=== PATIENT | female | born 1960 | race Caucasian/White ===

== ENCOUNTER → 2017-12-12 08:59 | Outpatient (CLI) | payer OTHER, SELFPAY ==
[2017-12-12 10:57] LABS: ALB/GLOB Ratio 1.2 RATIO (0.9-2.4); AST(SGOT) 15 U/L (15-37); Alanine Aminotransfer ALT/SGPT 25 U/L (13-56); Albumin, Serum 3.7 g/dL (3.2-5.0); Alkaline Phosphatase 90 U/L (45-117); Anion Gap 5 (5-15); BUN 14 mg/dL (7-18); BUN/Creat Ratio 19.9 RATIO (10-20); Calcium,Total 8.5 mg/dL (8.5-10.1); Chloride 107 mmol/L (98-107); EST Glomerular Filtration Rate 91 mL/min (>60); Est Glom Filt Rate - Afr Amer 110 mL/min (>60); Globulin 3.2 g/dL (2.2-4.2); Glucose 86 mg/dL (74-106); Protein, Total 6.9 g/dL (6.4-8.2); Sodium Level 140 mmol/L (136-145)
== END ==
PROVIDERS: Visit Provider Family Medicine
DX: I10 Essential (primary) hypertension (principal)
CPT/HCPCS: 36415; 80053

== ENCOUNTER → 2017-12-24 08:41 | Outpatient (CLI) | payer OTHER, SELFPAY ==
--- NOTE | 2017-12-24 08:53 | BI_ITS ---
MAMMOGRAPHY - BILATERAL SCREENING REASON FOR EXAM: Female, 57 years old. Routine annual screening examination. PERTINENT HISTORY: Non-contributory. TECHNIQUE: Digital bilateral breast teodora (3D mammographic acquisition) in the CC and MLO projections. 2-D mediolateral oblique (MLO) and craniocaudad (CC) views of both breasts were obtained. CAD: Full Field Digital Mammography with Computer Added Detection was performed. COMPARISON: Comparison is made with prior study dated September 12, 2015. FINDINGS: Breast Composition: There are scattered areas of fibroglandular density. There are no dominant masses or suspicious calcifications. No other significant abnormalities are identified. There has been no significant change since the prior study. BI/SCREENING MAMM (CAD), BILAT IMPRESSION: Stable bilateral screening mammogram. Yearly follow-up mammogram recommended. (A) ASSESSMENT CATEGORY: BIRADS Category 1: Negative. A letter regarding these results will be sent to the patient by the facility within 30 days. Approximately 10% of breast cancers are not detected by mammography. A normal mammogram should not delay biopsy of a clinically suspicious abnormality. [id number] Electronically Signed: Lorenzo Guerra MD at 8:55 EDT Tel [phone], Service support ,
== END ==
PROVIDERS: Family Provider Family Medicine; PCP Family Medicine; Visit Provider Family Medicine
DX: Z12.31 Encounter for screening mammogram for malignant neoplasm of breast (principal)
CPT/HCPCS: 77063; 77067

== ENCOUNTER → 2018-07-28 08:12 | Outpatient (CLI) | payer OTHER, SELFPAY ==
[2018-07-28 10:42] LABS: BUN 18 mg/dL (7-18); Creatinine, Serum 0.52 mg/dL (0.55-1.02); Glucose 77 mg/dL (74-106)
[2018-07-28 10:43] LABS: ALB/GLOB Ratio 1.2 RATIO (0.9-2.4); AST(SGOT) 17 U/L (15-37); Alanine Aminotransfer ALT/SGPT 24 U/L (13-56); Albumin, Serum 3.6 g/dL (3.2-5.0); Alkaline Phosphatase 85 U/L (45-117); Anion Gap 9 (5-15); BUN/Creat Ratio 34.5 RATIO (10-20); Calcium,Total 8.4 mg/dL (8.5-10.1); Chloride 106 mmol/L (98-107); Cholesterol 233 mg/dL (200); EST Glomerular Filtration Rate 129 mL/min (>60); Est Glom Filt Rate - Afr Amer 156 mL/min (>60); Globulin 3.1 g/dL (2.2-4.2); High Density Lipoprotein 51 mg/dL; Protein, Total 6.7 g/dL (6.4-8.2); Sodium Level 140 mmol/L (136-145); Triglycerides 250 mg/dL; Very Low Density Lipoprotein 50 mg/dL (5-40)
== END ==
LOC: MFPLAB 08:13
PROVIDERS: Family Provider Family Medicine; PCP Family Medicine; Visit Provider Nurse Practitioner Family
DX: I10 Essential (primary) hypertension (principal); E78.5 Hyperlipidemia, unspecified
CPT/HCPCS: 36415; 80053; 80061

== ENCOUNTER 2018-08-21 16:30 | Outpatient (RCR) | payer OTHER, SELFPAY ==
--- NOTE | 2018-06-22 11:39 | HP.PTEVAL ---
Patient's Visit Information MARIANELA CRANDALL is a 57 year old F referred to Physical Therapy by SHAWN LIU with a diagnosis of LEFT SHOULDER OA, IMPINGEMENT & ADHESIVE CAPSULITIS. S/P L SHLD SX 06/12/18. Date of Evaluation: 06/22/18 Physical Therapist: Vilma Barrientos, PT, Cert MDT - Visit Plan Frequency: 2-3x /Week Duration: 4-6 Weeks Plan: LEFT UE ROM, STRETCHING AND STRENGTHENING TO HELP MEET SET GOALS AND RETURN TO WORK SUCCESSFULLY. - Subjective Findings: DX: S/P LEFT SHOULDER SURGERY 10 DAYS AGO. 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 OFF WORK SINCE 06/02/18. TENTATIVE RTW DATE OF 08/07/18. FOLLOW UP WITH SURGEON 08/01/18. Disability: NO. Present symptoms: LEFT SHOULDER PAIN MAINLY IN THE FRONT OF THE SHOULDER. NO NUMBNESS OR TINGLING. Present since: ABOUT A YEAR AGO. Pain Scale: Worst - 9/10 Least - 1/10. Currently: 06/22. PATIENT REPORTS SHE IS CURRENTLY GETTING BETTER. Commenced as a result of: NO APPARENT REASON. Symptoms at onset: SAME - FRONT OF LEFT SHOULDER. Worse: RAISING LEFT ARM UP AND OUT TO THE SIDE. Better: RESTING ARM IN LAP. NOT MOVING ARM. Disturbed sleep: YES. Previous history/Previous treatment: NO PRIOR HISTORY OF SHOULDER OR NECK PROBLEMS BEFORE A YEAR AGO. SINCE THIS LEFT SHOULDER PAIN STARTED SHE HAS UNDERGONE PHYSICAL THERAPY IN THE HOPES OF PREVENTING SURGERY BUT IT WAS UNSUCCESSFUL. SHE ALSO TRIED AN INJECTION WHICH HELPED FOR ABOUT 2 WEEKS ONLY. SHOT AND PT WERE IN APR 2018. Dizziness: NO. Tinnitis: NO. Nausea: NO. Shortness of Breath: NO. Difficulty Swollowing: YES - PATIENT REPORTS THAT WHEN SHE TAKES HER MEDICINE OR EATS SHE FEELS LIKE IT GETS STUCK IN HER THROAT AND IT STARTED ABOUT A MONTH AGO BEFORE SURGERY. STATES SHE HASN'T TOLD ANYONE YET BUT GOING TO SCHEDULE AN APPOINTMENT TO SEE DR. RANGEL. FAMILY HISTORY OF THYROID PROBLEMS. STAYING THE SAME. Gait: NORMAL. Accidents: NO. Unexplained weight loss: NO. Imagin LEFT SHOULDER X-RAY SHOWED: Moderate degenerative changes of the left coracoclavicular joint. No fractures. MORE X-RAYS AND MRI BEFORE SURGERY MAR 2018 - PATIENT REPORTS SHE WAS TOLD ARTHRITIS AND NO ROTATOR CUFF TEAR. PMH/Recent major surgery: UNREMARKABLE. PLOF (Prior Level of Function): UNLIMITED. OTHER: PATIENT REPORTS SHE REALLY DOESN'T UNDERSTAND WHAT SURGERY THEY DID ON HER SHOULDER BUT SHE KNOWS SHE DID NOT HAVE A ROTATOR CUFF REPAIR. OTHER: PATIENT REPORTS SHE HAD SURGERY ON HER LEFT SHOULDER BY DR. SHAWN LIU IN [facility] [place]. PATIENT WORKS IN [place] AND SHE HAD PT IN [facility] [facility] BEFORE SURGERY. - Objective THIS PATIENT AMBULATES INDEP'LY INTO PT WITHOUT ANY ASSISTIVE DEVICES AND NO GROSS DEVIATIONS NOTED. SHE IS NOT WEARING A SLING. HER POSTURE IS FAIR WITH MILD FORWARD HEAD AND ROUNDED SHOULDERS. RIGHT UE ROM AND STRENGTH IS WFL. LEFT UE AROM IS FULL EXCEPT LEFT SHOULDER: AROM FLEX 84 DEG, SCAPTION 78 DEG, IR 52 DEG AND ER 12 DEG. PROM FLEX 90 DEG, IR 56 DEG, ER 15 DEG. HER SMALL PORT HOLES LOOK GOOD WITHOUT ANY SIGNS OF INFECTION AND SHE HAS MILD SMELLING LOCALIZED TO THE LEFT SHOULDER REGION. SHE HAS A BLACK MOLE ON THE TOP OF HER LEFT SHOULDER THAT SHE PLANS TO HAVE DR. COOK LOOK AT FOR HER AT HER NEXT APPOINTMENT. TREATMENT: PATIENT WAS INSTRUCTED IN AROM OF HER ELBOW, FOREARM, WRIST AND HAND. ALSO INSTRUCTED IN LUE PENDULUM EX CW AND CCW. THE TOLERATED THESE EX'S REALLY WELL. SHE IS PLEASANT AND COOPERATIVE TO WORK WITH. - Goals Goal 1:: DECREASE C/O LEFT SHOULDER PAIN Goal Time Frame: 4-6 Weeks Goal 2:: IMPROVE LEFT SHOULDER FUNCTIONAL ROM Goal Time Frame: 4-6 Weeks Goal 3:: IMPROVE LEFT SHOULDER FUNCTIONAL STRENGTH Goal Time Frame: 4-6 Weeks Goal 4:: SUCCESSFUL RETURN TO WORK Goal Time Frame: 4-6 Weeks Goal 5:: INDEP HEP FOR CONTINUED IMPROVEMENT ONCE FORMAL PHYSICAL THERAPY CONCLUDES. Goal Time Frame: 4-6 Weeks - Rehabilitation Potential Rehabilitation Potential: Good - Anticipated Interventions Patient/Client Instruction: Educate patient on: Condition, Plan of Care, Risk Factors, Benefits of Fitness Program For the Purpose of:: To improve self management Therapeutic Exercise to Include: Strength training, Body mechanics, Postural training, Flexibilty training, Passive ROM, Active ROM, Miya Exercises For the Purpose of:: To decrease pain, To increase ROM, To improve muscle performance and motor function, To increase tolerance to activity/condition/position, To improve performance and independence with ADL's, To improve ability of physical actions for home/community/work/leisure Manual Therapy Techniques to Include: Mobilization, Passive ROM For the Purpose of:: To decrease pain, To increase ROM Cryotherapy (ice pack, ice massage): Yes For the Purpose of:: To decrease pain, To decrease swelling/inflammation Thank you for the opportunity to evaluate your patient. For Medicare and Medicare HMO plans, please review the plan of care and approve it. It will need to be FAXED BACK to us at [phone] for Medicare purposes. For Medicare only, by signing this I certify the plan of care. Please let me know if there are questions or concerns regarding this plan of care. Physician Signature: Date:
--- NOTE | 2018-07-24 09:57 | HP.PTREVAL_ITS ---
SHAWN LIU, It has been my pleasure to treat MARIANELA CRANDALL over the last 13 visits for LEFT SHOULDER OA, IMPINGEMENT & ADHESIVE CAPSULITIS. S/P L SHLD SX 06/12/18. Please see the progress note below for an update on the physical therapy plan of care! Subjective: PATIENT REPORTS SHE WOULD SAY SHE IS 100% BETTER BECAUSE SHE REMEMBERS IN THE BEGINNING OF THERAPY SHE COULD ONLY DO 3 CIRCLES ON THE WALL AND THE OTHER DAY SHE DID 30. SHE REPORTS SHE IS HAVING A LITTLE DISCOMFORT IN HER SHOULDER RIGHT NOW BECAUSE SHE JERKED IT A LITTLE BIT ABOUT A HALF HOUR AGO WHEN SHE SLIPPED. 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 STATES IT IS NO BIG DEAL TO CARRY GROCERIES IN. EVEN HAS SWEPT SNOW A FEW TIMES. HAPPY TO BE ABLE TO REACH OUT TO THE SIDE NOW TOO WHICH SHE COULDN'T DO VERY WELL WHEN SHE FIRST STARTED PT. FOLLOW UP APPOINTMENT PENDING WITH DR. LIU TOMORROW MORNING. SHE REPORTS SHE IS EXPECTING TO BE RELEASED TO WORK. PATIENT REPORTS SHE CALLED AND MOVED HER RIVAS'Karen UP BECAUSE SHE WANTS TO GO BACK TO WORK SOON POSSIBLE IF IT IS OK WITH DR. LIU. PATIENT REPORTS SHE IS GLAD SHE HAD THE SURGERY AND THAT SHE CAN PUT HER SHIRT ON AND OFF WITHOUT PAIN NOW AND SHE COULDN'T DO THAT BEFORE SURGERY. PATIENT REPORTS SHE IS NO LONGER FEELING LIKE ANYTHING IS GETTING STUCK IN HER THROAT OR HAVING DIFFICULTY SWOLLOWING SINCE SHE STOPPED TAKING SOME OF HER SUPPLEMENTS. SHE REPORTS SHE HAS AN APPOINTMENT PENDING WITH DR. COOK TUESDAY AND SHE WILL DISCUSS WITH HIM. PATIENT REPORTS SHE IS ABLE TO SLEEP ON HER LEFT SIDE NOW TOO. SHE STATES I CAN PRETTY MUCH DO EVERYTHING NOW THAT I COULDN'T DO BEFORE I CAME IN HERE. PATIENT REPORTS THAT ALTHOUGH SHE WOULD LIKE TO CONTINUE PT SHE NEEDS TO CHECK ON COST OF INSURANCE AT WORK BEFORE AGREEING. Objective/Function: PATIENT HAS MADE GREAT PROGRESS TOWARD ALL GOALS HOWEVER SHE DOES STILL HAVE DECREASED LEFT SHOULDER ROM, STRENGTH AND FUNCTION AND PAIN AT THE END OF THE AVAILABLE RANGE. WOULD RECOMMEND CONTINUED PT. PATIENT IS AGREEABLE PENDING HER LOOKING INTO WHEN HER COST OF INSURANCE MIGHT CHANGE. UPON EXAM TODAY: SHE DOES STILL HAVE FORWARD HEAD AND ROUNDED SHOULDERS. LEFT SHOULDER: AROM FLEX 147 DEG, ABD 165 DEG, IR 76 DEG AND ER 50 DEG. PROM FLEX 156 DEG. SHE DEMONSTRATED AND COMMUNICATED A FAIR UNDERSTANDING OF NEW INSTRUCTIONS GIVEN TODAY BUT REINFORCEMENT NEEDED. WOULD RECOMMEND INCORPORATING MORE WORK SIMULATION INTO TREATMENT TOLERATED. QUICK DASH FUNCTIONAL SCREEN HAS IMPROVED FROM 47 TO 17. Plan Plan: CONTINUE SKILLED PT 2-3 TIMES A WEEK X 4-6 WEEKS FOR MANUAL THERAPY FOR LEFT SHOULDER PROM AND JOINT MOBILIZATION, POSTURE CORRECTION/STRENGTHENING, LUE ROM, STRETCHING AND STRENGTHENING. 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 HOLD DOUBLE OVER-HEAD PRESS DUE TO PAIN AND COMPENSTATIONS. OK TO PROGRESS SINGLE UE OVER-HEAD PRESS WITH LIGHT WEIGHTS AVOIDING COMPENSATIONS. Goals Goal 1:: DECREASE C/O LEFT SHOULDER PAIN Goal Time Frame: 4-6 Weeks Goal Progress: Progressing Goal 2:: IMPROVE LEFT SHOULDER FUNCTIONAL ROM Goal Time Frame: 4-6 Weeks Goal Progress: Progressing Goal 3:: IMPROVE LEFT SHOULDER FUNCTIONAL STRENGTH Goal Time Frame: 4-6 Weeks Goal Progress: Progressing Goal 4:: SUCCESSFUL RETURN TO WORK Goal Time Frame: 4-6 Weeks Goal Progress: Progressing Goal 5:: INDEP HEP FOR CONTINUED IMPROVEMENT ONCE FORMAL PHYSICAL THERAPY CONCLUDES. Goal Time Frame: 4-6 Weeks Goal Progress: Progressing Anticipated Interventions Patient/Client Instruction: Educate patient on: Condition, Plan of Care, Risk Factors, Benefits of Fitness Program For the Purpose of:: To improve self management Therapeutic Exercise to Include: Strength training, Body mechanics, Postural training, Flexibilty training, Passive ROM, Active ROM, Miya Exercises For the Purpose of:: To decrease pain, To increase ROM, To improve muscle performance and motor function, To increase tolerance to activity/condition/position, To improve performance and independence with ADL's, To improve ability of physical actions for home/community/work/leisure Manual Therapy Techniques to Include: Mobilization, Passive ROM For the Purpose of:: To decrease pain, To increase ROM Cryotherapy (ice pack, ice massage): Yes For the Purpose of:: To decrease pain, To decrease swelling/inflammation Please do not hesitate to contact me at [phone] by phone or if you have questions or concerns regarding this new plan of care! Sincerely, Vilma Barrientos, PT, Cert MDT
--- NOTE | 2018-08-21 16:58 | HP.PTDCSUM_ITS ---
HP - PT D/C Summary It has been my pleasure to treat MARIANELA CRANDALL under orders from SHAWN LIU, for the diagnosis of LEFT SHOULDER OA, IMPINGEMENT & ADHESIVE CAPSULITIS. S/P L SHLD SX 06/12/18 for a total of 21 visit(s). Discharge Date: Please see the following information for a summary of their discharge status. - Subjective Subjective: I'M GRADUATING TODAY. PATIENT RPEORTS SHE IS DOING REALLY GOOD. PATIENT REPORTS SHE IS 100% BETTER BUT SHE IS GOING TO KEEP WORKING ON TRYING TO GET HER HAND UP HER BACK MORE. STATES SHE HASN'T HAD ANY PROBLEMS WITH HER SHOULDER AT WORK OR DOING HER USUAL WORK AT HOME. - Pain L Shldr Pain Intensity (Out of 10): 0 - Overall Improvement % Improvement: 100 - Objective Objective/Function: PATIENT HAS MADE GREAT PROGRESS AND IS BACK TO WORK AND HOME ACTIVITIES WITHOUT COMPLAINT. SHE WOULD LIKE TO BE DISCHARGED. SHE DOES STILL HAVE SOME LEFT UE LIMITATIONS MEASURED BELOW BUT SHE ALSO HAS ROM LIMITATIONS ON THE RIGHT. IN COMPARASON TO THE RIGHT HER LEFT SHOULDER PASSIVE FLEX AND IR ARE SLIGHTLY MORE LIMITED. LEFT SHOULDER: AROM FLEX 148 DEG, ABD 164 DEG, IR 76 DEG AND ER 80 DEG. PROM FLEX 170 DEG. STRENGTH: LEFT UE STRENGTH 4-5/5 WITH MMT'ING WITHIN AVAILABLE ROM. QUICK DASH FUNCTIONAL SCREEN HAS IMPROVED FROM 47 TO 17 AND NOW 11. PATIENTS SUBJECTIVE REPORTS CONTINUE TO BE MORE OPTOMISTIC THAN OBJECTIVE FINDINGS. - Goals Goal 1:: DECREASE C/O LEFT SHOULDER PAIN Goal Progress: Goal Met Goal 2:: IMPROVE LEFT SHOULDER FUNCTIONAL ROM Goal Progress: Goal Met Goal 3:: IMPROVE LEFT SHOULDER FUNCTIONAL STRENGTH Goal Progress: Goal Met Goal 4:: SUCCESSFUL RETURN TO WORK Goal Progress: Goal Met Goal 5:: INDEP HEP FOR CONTINUED IMPROVEMENT ONCE FORMAL PHYSICAL THERAPY CO NCLUDES. Goal Progress: Goal Met - Plan Plan: D/C TO INDEP HOME EX PROGRAM PER PATIENT REPORT. - D/C Information If there are questions or concerns regarding this patient's physical therapy, please feel free to call me at [phone]. Thank you for the referral of this patient. Sincerely, Vilma Barrientos, PT, Cert MDT
== END 2018-08-21 19:00 | disposition home or self-care (01) ==
LOC: PT 16:30
PROVIDERS: Family Provider Family Medicine; PCP Family Medicine
DX: M75.42 Impingement syndrome of left shoulder (principal); M19.012 Primary osteoarthritis, left shoulder; M75.02 Adhesive capsulitis of left shoulder
CPT/HCPCS: 97110; 97140; 97161; 97530

== ENCOUNTER → 2019-10-26 07:59 | Outpatient (CLI) | payer OTHER, SELFPAY ==
[2019-10-26 11:06] LABS: ALB/GLOB Ratio 1.1 RATIO (0.9-2.4); AST(SGOT) 19 U/L (15-37); Alanine Aminotransfer ALT/SGPT 32 U/L (13-56); Albumin, Serum 3.7 g/dL (3.2-5.0); Alkaline Phosphatase 81 U/L (45-117); Anion Gap 10 (5-15); BUN 17 mg/dL (7-18); BUN/Creat Ratio 26.7 RATIO (10-20); Chloride 106 mmol/L (98-107); Cholesterol 197 mg/dL (200); Creatinine, Serum 0.64 mg/dL (0.55-1.02); EST Glomerular Filtration Rate 102 mL/min (>60); Est Glom Filt Rate - Afr Amer 123 mL/min (>60); Globulin 3.3 g/dL (2.2-4.2); Glucose 87 mg/dL (74-106); High Density Lipoprotein 49 mg/dL; Potassium 3.9 mmol/L (3.5-5.1); Sodium Level 140 mmol/L (136-145); Triglycerides 146 mg/dL; Very Low Density Lipoprotein 29 mg/dL (5-40)
== END ==
PROVIDERS: PCP Family Medicine; Referring Provider Family Medicine; Visit Provider Family Medicine
DX: I10 Essential (primary) hypertension (principal)
CPT/HCPCS: 36415; 80053; 80061

== ENCOUNTER → 2020-07-02 09:03 | Outpatient (CLI) | payer OTHER, SELFPAY ==
[2020-07-02 10:42] LABS: AST(SGOT) 30 U/L (15-37); Alanine Aminotransfer ALT/SGPT 33 U/L (13-56); Albumin, Serum 3.6 g/dL (3.2-5.0); Alkaline Phosphatase 87 U/L (45-117); Anion Gap 4 (5-15); BUN 17 mg/dL (7-18); BUN/Creat Ratio 26.4 RATIO (10-20); Calcium,Total 8.9 mg/dL (8.5-10.1); Chloride 108 mmol/L (98-107); Cholesterol 193 mg/dL (200); Creatinine, Serum 0.64 mg/dL (0.55-1.02); EST Glomerular Filtration Rate 100 mL/min (>60); Est Glom Filt Rate - Afr Amer 121 mL/min (>60); Globulin 3.5 g/dL (2.2-4.2); Glucose 82 mg/dL (74-106); High Density Lipoprotein 48 mg/dL; Potassium 3.8 mmol/L (3.5-5.1); Protein, Total 7.1 g/dL (6.4-8.2); Sodium Level 139 mmol/L (136-145); Triglycerides 158 mg/dL; Very Low Density Lipoprotein 32 mg/dL (5-40)
[2020-07-02 13:00] LABS: Vitamin D,25 Hydroxy 72.9 ng/mL
== END ==
PROVIDERS: PCP Family Medicine; Referring Provider Family Medicine; Visit Provider Family Medicine
DX: Z00.00 Encounter for general adult medical examination without abnormal findings (principal); Z13.21 Encounter for screening for nutritional disorder; I10 Essential (primary) hypertension; E78.5 Hyperlipidemia, unspecified
CPT/HCPCS: 36415; 80053; 80061; 82306

== ENCOUNTER → 2020-07-02 09:34 | Outpatient (CLI) | payer OTHER, SELFPAY ==
--- NOTE | 2020-07-02 09:36 | BI_ITS ---
MAMMOGRAPHY - BILATERAL SCREENING REASON FOR EXAM: Female, 59 years old. Routine annual screening examination. PERTINENT HISTORY: Non-contributory. TECHNIQUE: Digital bilateral breast lashaun (3D mammographic acquisition) in the CC and MLO projections. 2-D mediolateral oblique (MLO) and craniocaudad (CC) views of both breasts were obtained. CAD: Full Field Digital Mammography with Computer Added Detection was performed. COMPARISON: Comparison is made with prior study dated 12/24/2017 and 09/12/2015. FINDINGS: Breast Composition: There are scattered areas of fibroglandular density. There are no dominant masses or suspicious calcifications. Stable benign-appearing bilateral axillary lymph nodes. No other significant abnormalities are identified. There has been no significant change since the prior study. BI/SCRN MAMM (CAD)W/LASHAUN BILAT IMPRESSION: Stable bilateral screening mammogram. Yearly follow-up mammogram recommended. (A) ASSESSMENT CATEGORY: BIRADS Category 2: Benign. A letter regarding these results will be sent to the patient by the facility within 30 days. Approximately 10% of breast cancers are not detected by mammography. A normal mammogram should not delay biopsy of a clinically suspicious abnormality. [id number] Electronically Signed: Lorenzo Guerra MD at 10:23 EST , Service support ,
== END ==
PROVIDERS: PCP Family Medicine; Referring Provider Family Medicine; Visit Provider Family Medicine
DX: Z12.31 Encounter for screening mammogram for malignant neoplasm of breast (principal)
CPT/HCPCS: 77063; 77067